=== PATIENT | male | born 1995 | race Caucasian/White ===

== ENCOUNTER → 2020-02-29 | Outpatient (CLI) | payer BC ==
--- NOTE | 2020-02-29 12:22 | Diagnostic Imaging Report ---
INDICATION: Lateral epicondylitis. COMPARISON: None FINDINGS: 3 radiographic views of the right elbow were obtained. There is no evidence of acute fracture. Osseous structures are intact. Joint spaces are maintained. Note is made of multiple potential intra-articular loose bodies. Largest is seen proximal to the posterior margins of the radial head and measures approximately 1 cm in diameter. IMPRESSION: 1. No acute fracture or dislocation of the right elbow. 2. Multiple potential intra-articular loose bodies. Correlation with CT or MRI is recommended. Dictated by: Dictated on workstation # [id number]
== END ==
LOC: ORTHO 09:55
PROVIDERS: ATTEND Orthopaedic Surgery
DX: M77.11 Lateral epicondylitis, right elbow (principal)
CPT/HCPCS: 73080; G0463; 99203